=== PATIENT | female | born 1980 | race Caucasian/White ===

== ENCOUNTER 2017-07-23 15:18 | Emergency (ER) | payer MEDICAID ==
[~2017-07-23] VITALS: Ht 175.3 cm; Wt 137.0 kg
[2017-07-23 15:25] VITALS: BP 142/104
== END 2017-07-23 19:11 | disposition left against medical advice (07) ==
LOC: ER 16:20
DX: R22.1 Localized swelling, mass and lump, neck (principal); Z53.21 Procedure and treatment not carried out due to patient leaving prior to being seen by health care provider